=== PATIENT | male | born 1990 | race Caucasian/White ===

== ENCOUNTER 2025-01-03 11:45 | Emergency (ER) | payer BC, MEDICAID ==
[~2025-01-03] VITALS: Ht 180.3 cm; Wt 64.7 kg
[~2025-01-03 11:45] MED LIST: LEVE250T3 PO
[2025-01-03] MEDS: dexamethasone sod phosphate 10mg/ml inj IM STA (13:58)
[2025-01-03] MEDS: ketorolac trometh 30MG/ML vial 30 MG/ML VIAL IM ONE (13:58)
[2025-01-03] MEDS: LIDOcaine 1% W/epiNEPHrine 1:100,000 20ml vial SQ ONE (13:58)
[2025-01-03 15:19] VITALS: BP 124/43; PULSE 67; RESP 16; TEMP 98.9; O2SAT 99
== END 2025-01-03 15:20 | disposition home or self-care (01) ==
LOC: ER 11:46
DX: S42.021A Displaced fracture of shaft of right clavicle, initial encounter for closed fracture (principal); F12.90 Cannabis use, unspecified, uncomplicated; Z72.89 Other problems related to lifestyle; Z79.899 Other long term (current) drug therapy; Z88.5 Allergy status to narcotic agent; V00.311A Fall from snowboard, initial encounter; Y93.23 Activity, snow (alpine) (downhill) skiing, snowboarding, sledding, tobogganing and snow tubing; Y92.89 Other specified places as the place of occurrence of the external cause; Y99.8 Other external cause status
CPT/HCPCS: 73000; 99283; A4565